=== PATIENT | female | born 1950 ===

== ENCOUNTER 2017-12-20 20:03 | Emergency (ER) | payer MEDICARE, MEDICAID ==
--- NOTE | 2017-12-20 21:41 | ED PDOC ---
HPI: Psych/Substance Abuse Time Seen by Provider: 12/20/17 20:53 Chief Complaint (Nursing): Anxiety Chief Complaint (Provider): Anxiety History Per: Patient History/Exam Limitations: no limitations Onset/Duration Of Symptoms: Days (x60) Current Symptoms Are (Timing): Still Present Additional Complaint(s): 67 y/o female with a PMHx of Parkinson's disease, anxiety and breast Cancer presents to the ED with sister who states she has been anxious. Sister reports anxiousness has been worsening for the past two months. Patient was prescribed Xanex for Anxiety. PMD: Diana Butler Past Medical History Reviewed: Historical Data, Nursing Documentation, Vital Signs - Medical History PMH: Anxiety, Parkinson's Disease Other PMH: Breast Cancer - Surgical History Surgical History: No Surg Hx - Family History Family History: States: Unknown Family Hx - Home Medications Home Medications: Ambulatory Orders Medication Instructions Recorded busPIRone [Buspar] 5 mg PO BID #13 tab 12/20/17 - Allergies Allergies/Adverse Reactions: Allergies Allergy/AdvReac Type Severity Reaction Status Date / Time No Known Allergies Allergy Verified 08/29/15 13:12 Review of Systems ROS Statement: Except As Marked, All Systems Reviewed And Found Negative Psych: Positive for: Anxiety Physical Exam - Reviewed Nursing Documentation Reviewed: Yes Vital Signs Reviewed: Yes - Physical Exam Appears: Positive for: Non-toxic, No Acute Distress (Continous movements noted) Head Exam: Positive for: ATRAUMATIC, NORMOCEPHALIC Skin: Positive for: Normal Color, Warm, Dry Eye Exam: Positive for: Normal appearance, EOMI, PERRL Neck: Positive for: Normal, Painless ROM Cardiovascular/Chest: Positive for: Regular Rate, Rhythm. Negative for: Murmur Respiratory: Positive for: Normal Breath Sounds. Negative for: Respiratory Distress Gastrointestinal/Abdominal: Positive for: Normal Exam, Soft. Negative for: Tenderness Back: Positive for: Normal Inspection. Negative for: L CVA Tenderness, R CVA Tenderness, Vertebral Tenderness Extremity: Positive for: Normal ROM. Negative for: Deformity Neurologic/Psych: Positive for: Alert (Awake) Medical Decision Making Medical Decision Making: Time: 2109 Plan: -- Crisis Evaluation as ordered Scribe Attestation: Documented by Elisabeth Jolly acting as a scribe for Dr. Hansa Jackson MD. Provider Scribe Attestation: All medical record entries made by the Scribe were at my direction and personally dictated by me. I have reviewed the chart and agree that the record accurately reflects my personal performance of the history, physical exam, medical decision making, and the department course for this patient. I have also personally directed, reviewed, and agree with the discharge instructions and disposition. Disposition - Clinical Impression Clinical Impression: Anxiety - Disposition Disposition: Routine/Home Disposition Time: 21:52 Condition: STABLE Additional Instructions: FOLLOW-UP WITH OUTPATIENT PSYCH ADVISED. Prescriptions: busPIRone [Buspar] 5 mg PO BID #13 tab Instructions: Anxiety, Adult (DC) Forms: [employer] (Irish) Print Language: FAROESE
[2017-12-20 22:33] VITALS: BP 137/79; PULSE 93; RESP 18; O2SAT 98
== END 2017-12-20 22:33 | disposition home or self-care (01) ==
LOC: H.ER 20:03
DX: F41.9 Anxiety disorder, unspecified (principal); G20 Parkinson's disease

== ENCOUNTER 2018-01-03 17:31 | Emergency (ER) | payer MEDICARE, MEDICAID ==
[2018-01-03 17:37] VITALS: O2SAT 99
[2018-01-03 18:24] LABS: EOS # 0.2 K/uL (0.0-0.7); EOS % 4.4 % (0.0-4.0); HEMOGLOBIN 8.7 g/dL (12.0-16.0); LYMPH # 0.4 K/uL (1.0-4.3); LYMPH % 9.6 % (20.0-40.0); MEAN CORPUSCULAR HEMOGLOBIN 29.1 pg (27.0-31.0); MEAN CORPUSCULAR HGB CONC 32.7 g/dL (33.0-37.0); MEAN PLATELET VOLUME 7.3 fl (7.2-11.7); MONO # 0.3 K/uL (0.0-0.8); MONO % 6.5 % (0.0-10.0); NEUT # 3.2 K/uL (1.8-7.0); NEUT % 78.5 % (50.0-75.0); PLATELET COUNT 305 K/uL (130-400); RED CELL DISTRIBUTION WIDTH 15.7 % (11.5-14.5); WHITE BLOOD COUNT 4.1 K/uL (4.8-10.8)
--- NOTE | 2018-01-03 18:25 | ED PDOC ---
HPI: Psych/Substance Abuse Time Seen by Provider: 01/03/18 17:54 Chief Complaint (Nursing): Psychiatric Evaluation Chief Complaint (Provider): Psychiatric Evaluation History Per: Patient History/Exam Limitations: no limitations Onset/Duration Of Symptoms: Days Current Symptoms Are (Timing): Still Present Associated Symptoms: Anxiety. denies: Depression, Suicidal Thoughts, Suicidal Plan Additional History Per: Family (sister) Additional Complaint(s): 67 year old female presents to the ED for a psychiatric evaluation. Patient presents with her sister stating she has anxiety attacks for several months. She visited the psychiatrist and had a panic attack so she was referred to the ED. Patient feels anxious now and she does not take any medication for her symptoms. Patient denies headache, chest pain, homicidal or suicidal ideation. PMD: Dr. Mohamud Past Medical History Reviewed: Historical Data, Nursing Documentation, Vital Signs Vital Signs: Last Vital Signs Temp 98.0 F 01/03/18 17:32 Pulse 102 H 01/03/18 17:32 Resp 17 01/03/18 17:32 BP 107/62 01/03/18 17:32 Pulse Ox 99 01/03/18 17:32 - Medical History PMH: Anemia, Anxiety, Parkinson's Disease Denies: Diabetes, Hepatitis, HIV, HTN, Seizures, Sexually Transmitted Disease - Family History Family History: States: Unknown Family Hx - Social History Current smoker - smoking cessation education provided: No Alcohol: None Drugs: Denies - Home Medications Home Medications: Ambulatory Orders Medication Instructions Recorded busPIRone [Buspar] 5 mg PO BID #13 tab 12/20/17 - Allergies Allergies/Adverse Reactions: Allergies Allergy/AdvReac Type Severity Reaction Status Date / Time No Known Allergies Allergy Verified 08/29/15 13:12 Review of Systems ROS Statement: Except As Marked, All Systems Reviewed And Found Negative Cardiovascular: Negative for: Chest Pain Neurological: Negative for: Headache Psych: Positive for: Anxiety. Negative for: Suicidal ideation (homicidal ideation) Physical Exam - Reviewed Nursing Documentation Reviewed: Yes Vital Signs Reviewed: Yes - Physical Exam Appears: Positive for: Non-toxic, No Acute Distress Head Exam: Positive for: ATRAUMATIC, NORMAL INSPECTION, NORMOCEPHALIC Skin: Positive for: Normal Color, Warm, Dry Eye Exam: Positive for: Normal appearance, EOMI, PERRL ENT: Positive for: Normal ENT Inspection Neck: Positive for: Normal, Painless ROM, Supple Cardiovascular/Chest: Positive for: Regular Rate, Rhythm. Negative for: Murmur Respiratory: Positive for: Normal Breath Sounds. Negative for: Decreased Breath Sounds, Wheezing, Respiratory Distress Gastrointestinal/Abdominal: Positive for: Normal Exam, Bowel Sounds, Soft. Negative for: Tenderness, Guarding, Rebound Back: Positive for: Normal Inspection. Negative for: L CVA Tenderness, R CVA Tenderness Extremity: Positive for: Normal ROM. Negative for: Tenderness, Pedal Edema, Deformity Neurologic/Psych: Positive for: Alert, Oriented (x3), Mood/Affect (anxious) - Laboratory Results Result Diagrams: 01/03/18 18:20 01/03/18 18:20 - ECG O2 Sat by Pulse Oximetry: 99 (RA) Pulse Ox Interpretation: Normal Medical Decision Making Medical Decision Making: Time: 1803 Initial Impression: anxiety and panic attacks Differential Diagnosis includes but is not limited to: depression Initial Plan: --Alcohol Serum --BMP --Drug Screen --Crisis Evaluation as Ordered --CBC w/ Differential --Urinalysis --Reevaluation Time: 1899 Patient signed out to Dr. Landrum pending reevaluation and disposition Scribe Attestation: Documented by Ethel Palmer, acting as a scribe for Donya Redd MD Provider Scribe Attestation: All medical record entries made by the Scribe were at my direction and personally dictated by me. I have reviewed the chart and agree that the record accurately reflects my personal performance of the history, physical exam, medical decision making, and the department course for this patient. I have also personally directed, reviewed, and agree with the discharge instructions and disposition. Disposition - Clinical Impression Clinical Impression: Parkinson disease, Anxiety - Patient ED Disposition Is Patient to be Admitted: No Counseled Patient/Family Regarding: Studies Performed, Diagnosis - Disposition Disposition: Transfer of Care Disposition Time: 19:00 Condition: STABLE Instructions: Parkinson Disease, Anxiety, Adult (DC) Patient Signed Over To: George Landrum (pending reevaluation and disposition)
[2018-01-03 18:36] LABS: BLOOD UREA NITROGEN 33 mg/dl (7-17); GFR NON-AFRICAN AMERICAN > 60
--- NOTE | 2018-01-03 19:55 | ED PDOC ---
- Laboratory Results Result Diagrams: 01/03/18 18:20 01/03/18 18:20 - ECG O2 Sat by Pulse Oximetry: 99 (RA) Pulse Ox Interpretation: Normal Medical Decision Making Medical Decision Making: Time: 1899 Patient endorsed to me by Dr. Redd pending reevaluation and disposition Upon reevaluation by crisis, patient diagnosed with Parkinson's Disease and anxiety. Patient is stable for discharge. Scribe Attestation: Documented by Ethel Palmer, acting as a scribe for George Landrum MD Provider Scribe Attestation: All medical record entries made by the Scribe were at my direction and personally dictated by me. I have reviewed the chart and agree that the record accurately reflects my personal performance of the history, physical exam, medical decision making, and the department course for this patient. I have also personally directed, reviewed, and agree with the discharge instructions and disposition. Disposition - Clinical Impression Clinical Impression: Parkinson disease, Anxiety - POA Present On Arrival: None - Disposition Disposition: Routine/Home Disposition Time: 21:00 Condition: STABLE Instructions: Parkinson Disease, Anxiety, Adult (DC) Forms: [employer] (Mongolian)
[2018-01-03 20:47] LABS: SQUAMOUS EPITHIAL 2 /hpf (0-5); URINE BILIRUBIN NEGATIVE (NEGATIVE); URINE BLOOD NEGATIVE (NEGATIVE); URINE CLARITY SLIGHTY-CLOUDY (Clear); URINE COLOR YELLOW (YELLOW); URINE GLUCOSE (UA) NEG (Normal); URINE LEUKOCYTE ESTERASE NEG Leu/uL (Negative); URINE PROTEIN NEGATIVE (NEGATIVE); URINE UROBILINOGEN 0.2-1.0 mg/dL (0.2-1.0)
[2018-01-03 21:04] LABS: BARBITURATES, UR NEGATIVE (NEGATIVE); BENZODIAZEPINES, UR POSITIVE (NEGATIVE); OPIATES, UR NEGATIVE (NEGATIVE); PHENCYCLIDINE, UR NEGATIVE (NEGATIVE)
[2018-01-03 21:14] VITALS: BP 116/70; PULSE 88; RESP 18; TEMP 98.4
[2018-01-03 21:19] LABS: ANISOCYTOSIS MODERATE; BASOPHIL 1 % (0-2); EOSINOPHIL 4 % (0-7); LYMPHOCYTE 11 % (20-50); MONOCYTE 8 % (0-10); NEUTROPHIL 76 % (42-75); PLATELET ESTIMATE NORMAL (NORMAL); TOTAL CELLS COUNTED 100
[2018-01-03 21:20] LABS: POIKILOCYTOSIS SLIGHT; TOXIC GRANULATION PRESENT
== END 2018-01-03 21:10 | disposition home or self-care (01) ==
LOC: H.ER 17:31
DX: F41.0 Panic disorder [episodic paroxysmal anxiety] (principal); G20 Parkinson's disease; F41.9 Anxiety disorder, unspecified
CPT/HCPCS: 80048; 81003; 82948; 85025; 99285; G0480

== ENCOUNTER 2018-01-16 15:33 | Emergency (ER) | payer MEDICARE, MEDICAID ==
--- NOTE | 2018-01-16 16:44 | ED PDOC ---
HPI: Psych/Substance Abuse Time Seen by Provider: 01/16/18 16:35 Chief Complaint (Nursing): Anxiety Chief Complaint (Provider): Anxiety History Per: Patient, Family History/Exam Limitations: no limitations Onset/Duration Of Symptoms: Other (x6 months) Current Symptoms Are (Timing): Still Present Associated Symptoms: Anxiety Additional Complaint(s): 67 year old female presents to the ED complaining of anxiety and nervousness for about 6 months. Patient's family member reports that for the past month, symptoms have been worsening, have been occurring frequently, and is unable to sleep at night. Patient has a history of Parkinson's disease and has been compliant with medications. She has not taken any medications for anxiety and nervousness and family member does not think these complaints have to do with Parkinson's disease. Today's visit is nothing special as it happens every day. She hyperventilates and cries when she is nervous and sweats with anxiety. Denies CP, SOB, and fever. Patient's family member is requesting to be seen by psychotherapist and wants an appointment. PMD: Diana Anderson Past Medical History Reviewed: Historical Data, Nursing Documentation, Vital Signs - Medical History PMH: Anemia, Anxiety, Parkinson's Disease Denies: Diabetes, Hepatitis, HIV, HTN, Seizures, Sexually Transmitted Disease Other PMH: Breast cancer (many years ago) - Surgical History Surgical History: No Surg Hx Other surgeries: mastectomy - Family History Family History: States: Unknown Family Hx - Home Medications Home Medications: Ambulatory Orders Medication Instructions Recorded busPIRone [Buspar] 5 mg PO BID #13 tab 12/20/17 - Allergies Allergies/Adverse Reactions: Allergies Allergy/AdvReac Type Severity Reaction Status Date / Time No Known Allergies Allergy Verified 01/16/18 15:48 Review of Systems ROS Statement: Except As Marked, All Systems Reviewed And Found Negative Constitutional: Negative for: Fever Cardiovascular: Negative for: Chest Pain Respiratory: Negative for: Shortness of Breath Psych: Positive for: Anxiety, Other (Nervousness) Physical Exam - Reviewed Nursing Documentation Reviewed: Yes Vital Signs Reviewed: Yes - Physical Exam Appears: Positive for: Non-toxic, No Acute Distress (anxious and crying; has dyskinesia) Head Exam: Positive for: ATRAUMATIC, NORMOCEPHALIC Skin: Positive for: Normal Color, Warm, Dry Eye Exam: Positive for: Normal appearance Neck: Positive for: Normal, Painless ROM Cardiovascular/Chest: Positive for: Regular Rate, Rhythm. Negative for: Murmur Respiratory: Positive for: Normal Breath Sounds. Negative for: Wheezing, Respiratory Distress Extremity: Positive for: Normal ROM Neurologic/Psych: Positive for: Alert, Oriented. Negative for: Motor/Sensory Deficits - ECG O2 Sat by Pulse Oximetry: 98 (RA) Pulse Ox Interpretation: Normal Medical Decision Making Medical Decision Making: Initial Impression: Anxiety Initial Plan: Crisis evaluation Patient is requesting to see a psychiatrist and is requesting treatment for anxiety. 17:[address] Nuno. Pending crisis evaluation. Scribe Attestation: Documented by Buck Donohue acting as a scribe for Donya Redd MD. Provider Scribe Attestation: All medical record entries made by the Scribe were at my direction and personally dictated by me. I have reviewed the chart and agree that the record accurately reflects my personal performance of the history, physical exam, medical decision making, and the department course for this patient. I have also personally directed, reviewed, and agree with the discharge instructions and disposition. Disposition - Clinical Impression Clinical Impression: Anxiety - Patient ED Disposition Is Patient to be Admitted: Transfer of Care Counseled Patient/Family Regarding: Studies Performed, Diagnosis - Disposition Disposition: Transfer of Care Disposition Time: 17:00 Condition: IMPROVED Additional Instructions: follow up with outpatient psychiatric services as instructed return to the ED with any worsening or concerning symptoms Instructions: Anxiety, Adult (DC) Patient Signed Over To: Jessica Nuno
[2018-01-16 16:49] VITALS: TEMP 98.2
--- NOTE | 2018-01-16 17:53 | ED PDOC ---
- ECG O2 Sat by Pulse Oximetry: 98 (RA) Medical Decision Making Medical Decision Makin:00 Patient endorsed to me from Dr. Redd. Pending crisis evaluation. 18:55 Patient seen by crisis and is cleared for discharge by Dr. Bo. Patient will be discharged with her sister. Scribe Attestation: Documented by Buck Donohue acting as a scribe for Jessica Nuno MD. Provider Scribe Attestation: All medical record entries made by the Scribe were at my direction and personally dictated by me. I have reviewed the chart and agree that the record accurately reflects my personal performance of the history, physical exam, medical decision making, and the department course for this patient. I have also personally directed, reviewed, and agree with the discharge instructions and disposition. Disposition - Clinical Impression Clinical Impression: Anxiety - POA Present On Arrival: None - Disposition Disposition: Routine/Home Disposition Time: 18:45 Condition: IMPROVED Additional Instructions: follow up with outpatient psychiatric services as instructed return to the ED with any worsening or concerning symptoms Instructions: Anxiety, Adult (DC) Forms: [employer] (Afghan)
[2018-01-16 21:36] VITALS: BP 119/63; PULSE 72; RESP 14
[2018-01-17 08:15] VITALS: O2SAT 98
== END 2018-01-16 21:36 | disposition home or self-care (01) ==
LOC: H.ER 15:33
DX: F41.9 Anxiety disorder, unspecified (principal); G20 Parkinson's disease; Z85.3 Personal history of malignant neoplasm of breast
CPT/HCPCS: 81025; 96372; 99284; J2060